=== PATIENT | female | born 2000 | race Caucasian/White ===

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

== ENCOUNTER → 2018-05-15 | Outpatient (CLI) | payer BC ==
--- NOTE | 2018-05-17 17:55 | MR ---
EXAMINATION TYPE: MR hip RT wo/w con DATE OF EXAM: 05/15/2018 COMPARISON: Correlation CT 07/11/2016 HISTORY: 17 year-old female Right hip pain Technique: Multiplanar, multisequence images of the right hip were obtained before and after administ ration of 10.5 mL intravenous Gadavist gadolinium contrast. FINDINGS: An IUD is in place. Both ovaries are visualized. No abnormal fluid collection in the pelvis. There is slight bump at the superior femoral head neck junctions on both sides, refer to coronal T1 i mage 12 for the right and image 13 from the left hip. No discrete labral tear is identified given nonarthrographic technique. The rectus femoris and hamstrings origins as well as the gluteal and iliopsoas insertions appear norm al and intact. There is physiologic joint fluid on both sides. Some complex heterogeneity at or just below the anterior superior iliac crest on the left wrist seen on coronal STIR axial image 6 measuring 3.8 cm wide and 3.1 cm craniocaudal. On the axial T1-weighte d sequence there is no postcontrast enhancement and a remains dark on T1, refer to axial image 24. No enhancing periventricular lesions. SI joints and sacrum appear intact. Normal course, caliber, and signal intensity of the sciatic nerves. Prominent red marrow is present compatible with the patient's younger age. IMPRESSION: 1. 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 Correlate with physical exam testing. 2. No discrete labral tear given nonarthrographic technique. 3. A complex heterogeneous area measuring 3.8 cm at or just below the left anterior superior iliac sp ine. Correlate for any history of remote avulsion injury at the sartorius origin. There is no abnorm al enhancement to suggest a mass. Correlate for any palpable abnormality.
== END | disposition home or self-care (01) ==
LOC: RADMRIMAIN 11:54
PROVIDERS: ATTEND Family Medicine
DX: M25.551 Pain in right hip (principal)
CPT/HCPCS: 73723; A9585

== ENCOUNTER → 2019-10-05 | Outpatient (CLI) | payer BC, OTHER | END | disposition home or self-care (01) | LOC: LABWHC1 12:37 | PROVIDERS: ATTEND Internal Medicine Clinical Cardiac Electrophysiology | DX: Z11.59 Encounter for screening for other viral diseases (principal) | CPT/HCPCS: 87635 ==

== ENCOUNTER 2019-10-07 13:41 | Day surgery (SDC) | payer BC, OTHER ==
[2019-10-06 11:06] VITALS: BMI 36.0
[~2019-10-07 13:41] MED LIST: SODIUM CHLORIDE 0.9% 1,000 ML IV SCH
[2019-10-07] MEDS ORDERED: SODIUM CHLORIDE 0.9% 500 ML 500 ML IV ONE (14:24)
[2019-10-07 14:26] VITALS: PULSE 74; RESP 16; TEMP 98.1
--- NOTE | 2019-10-07 15:46 | P.PCN ---
Preoperative Diagnosis: Diagnosis recurrent presyncope Twelve-lead ECG shows sinus rhythm normal NV narrow QRS No delta waves no epsilon waves normal QT interval Tilt table test per protocol Baseline blood pressure 109/77 mmHg and 150/73 mmHg Patient was tilted upright at an angle of 70. An immediate drop in blood pressure to 52 mmHg was noted along with an increase in heart rate. Within 2-4 minutes, blood pressure improved but Jaspreet between 95-105 mmHg Intermittently her blood pressure would dip into the mid 90s and she would feel dizzy and short of breath similar to what she would feel at home. During these moments she would feel warm and sweaty When she was laid supine her blood pressure normalized 116/70 mmHg Impression Orthostatic hypotension Normal twelve-lead ECG Suggest Cortisol level Consider Florinef Increase fluid and salt intake Lower extremity muscle strengthening exercises
[2019-10-07 18:00] VITALS: BP 134/65
== END 2019-10-07 16:35 | disposition home or self-care (01) ==
LOC: CATHEP 13:41
PROVIDERS: ATTEND Internal Medicine Clinical Cardiac Electrophysiology
DX: I95.1 Orthostatic hypotension (principal); I49.8 Other specified cardiac arrhythmias; I99.9 Unspecified disorder of circulatory system; Z82.49 Family history of ischemic heart disease and other diseases of the circulatory system; Z88.0 Allergy status to penicillin
CPT/HCPCS: 81025; 82533; 93660

== ENCOUNTER → 2019-12-06 | Outpatient (CLI) | payer BC, OTHER ==
[2019-12-06 22:13] LABS: Hepatitis A Antibody IgM Non-Reactive (Non-Reactive); Hepatitis B Core IgM Non-Reactive (Non-Reactive); Hepatitis B Surface Antigen Non-Reactive (Non-Reactive); Hepatitis C IgG Antibody Non-Reactive (Non-Reactive)
== END | disposition home or self-care (01) ==
LOC: LABWHC1 10:41
PROVIDERS: ATTEND Internal Medicine
DX: D89.9 Disorder involving the immune mechanism, unspecified (principal)
CPT/HCPCS: 36415; 80074; 86480